=== PATIENT | male | born 1950 | race Two or more races ===

== ENCOUNTER 2018-03-06 09:20 | Day surgery (SDC) | payer OTHER ==
[~2018-03-06 09:20] MED LIST: ACID CONTROLLER20 MG PO; AMILODIPINE PO; ESTER-C 500 MG1 EACH PO; GILPHEX TR TAB1 EACH PO; LEVOTHYROXINE25 MCG PO; TAMS0.4C PO
== END 2018-03-06 19:15 | disposition home or self-care (01) ==
LOC: CIR.AMB 09:20
DX: M75.122 Complete rotator cuff tear or rupture of left shoulder, not specified as traumatic (principal); M13.812 Other specified arthritis, left shoulder

== ENCOUNTER 2019-02-16 12:01 | Outpatient (CLI) | payer OTHER | END 2019-02-16 12:05 | disposition home or self-care (01) | LOC: LAB 12:01 | DX: R31.0 Gross hematuria (principal) ==

== ENCOUNTER 2019-04-01 09:20 | Outpatient (CLI) | payer OTHER | END 2019-04-01 09:26 | disposition home or self-care (01) | LOC: LAB 09:20 | DX: N20.0 Calculus of kidney (principal) ==

== ENCOUNTER → 2019-04-01 | Outpatient (CLI) | payer OTHER | END | disposition home or self-care (01) | LOC: TOM 08:35 | DX: R31.0 Gross hematuria (principal); F52.21 Male erectile disorder | CPT/HCPCS: 74178; Q9965 ==

== ENCOUNTER 2020-01-20 09:44 | Emergency (ER) | payer OTHER ==
[~2020-01-20] VITALS: Ht 170.2 cm; Wt 77.6 kg
[2020-01-20] MEDS ORDERED: CIPRO500 MG PO (14:24)
[2020-01-20] MEDS ORDERED: TAMS0.4C PO (14:24)
[2020-01-26] MEDS ORDERED: AMLODIPINE PO (11:21)
[2020-01-26] MEDS ORDERED: ATORVASTATIN CA10 MG PO (11:22)
== END 2020-01-20 14:47 | disposition home or self-care (01) ==
LOC: ER 09:44
DX: N20.1 Calculus of ureter (principal); Z20.828 Contact with and (suspected) exposure to other viral communicable diseases

== ENCOUNTER → 2020-01-26 08:57 | Outpatient (CLI) | payer OTHER ==
[~2020-01-26 08:57] MED LIST changes: +AMLODIPINE PO; +ATORVASTATIN CA10 MG PO; +CIPRO500 MG PO
== END | disposition home or self-care (01) ==
LOC: LAB 08:57
PROVIDERS: ATTEND Urology
DX: N40.1 Benign prostatic hyperplasia with lower urinary tract symptoms (principal); I11.9 Hypertensive heart disease without heart failure

== ENCOUNTER 2021-02-26 23:53 | Inpatient (IN) | payer OTHER ==
[~2021-02-26] VITALS: Ht 170.2 cm; Wt 76.2 kg
[~2021-02-26 23:53] MED LIST changes: +AMLODIPINE-ATO1 EACH PO; +FINASTERIDE5 MG PO
[2021-02-27] MEDS ORDERED: TRAMADOL HCL E300 M1 (00:04)
[2021-02-27] MEDS ORDERED: ED-SPAZ0.125 MG (00:04)
--- NOTE | 2021-02-27 00:05 | NUR ---
SE RECIBE PTE ALERTA Y ORIENTADO POR GENNARO. PTE REFIERE DOLOR EPIGASTRICO Y CONSTIRPACION DESDE HACE 2 CHAKRABORTY.
--- NOTE | 2021-02-27 01:18 | NUR ---
SE REALIZA CANALIZACION Y LISBETH DE MUESTRAS BAJO MEDIDAS ASEPTICAS Y DE SEGURIDAD. SE ADMINSITRAN MEDICAMENTOS HADLEY LA ORDEN MEDICA SE ORIENTA A PACIENTE ASERCA DEL TRATAMIENTO OFRECIDO EN ANIA DE EMERGENCIAS. PACIENTE MANEJADO POR MISS Y. WATERS. SE MANTIENE PACIENTE EN OBSERVACION PENDIENTE A SONOGRAMA ABDOMINAL Y RESULTADOS DE LABORATORIOS.
[2021-03-04] MEDS ORDERED: ATORVASTATIN CA10 MG PO (09:34)
[2021-03-04] MEDS ORDERED: ED-SPAZ0.125 MG SL (09:34)
[2021-03-04] MEDS ORDERED: AMLODIPINE-ATO1 EACH PO (09:34)
[2021-03-04] MEDS ORDERED: LEVOTHYROXINE25 MCG PO (09:35)
[2021-03-04] MEDS ORDERED: PANTOPRAZOLE SO40 MG PO (09:35)
== END 2021-03-04 13:50 | disposition home or self-care (01) | DRG 440 ==
LOC: ER 23:53 → MEDI 02-27 10:20
PROVIDERS: ADMIT Internal Medicine; ATTEND Internal Medicine
PROC: BW40ZZZ Ultrasonography of Abdomen (ICD-10-PCS; 2021-02-27)
PROC: BF37ZZZ Magnetic Resonance Imaging (MRI) of Pancreas (ICD-10-PCS; 2021-02-27)
PROC: 0DB68ZX Excision of Stomach, Via Natural or Artificial Opening Endoscopic, Diagnostic (ICD-10-PCS; principal; 2021-03-03)
PROC: 0DB58ZX Excision of Esophagus, Via Natural or Artificial Opening Endoscopic, Diagnostic (ICD-10-PCS; 2021-03-03)
DX: K85.10 Biliary acute pancreatitis without necrosis or infection (principal); K82.4 Cholesterolosis of gallbladder; K21.00 Gastro-esophageal reflux disease with esophagitis, without bleeding; K31.7 Polyp of stomach and duodenum; I10 Essential (primary) hypertension; E78.5 Hyperlipidemia, unspecified; E03.9 Hypothyroidism, unspecified; Z86.010 Personal history of colon polyps

== ENCOUNTER 2022-02-01 06:34 | Day surgery (SDC) | payer OTHER ==
[~2022-02-01 06:34] MED LIST changes: +ED-SPAZ0.125 MG; +ED-SPAZ0.125 MG SL; +PANTOPRAZOLE SO40 MG PO; +TRAMADOL HCL E300 M1
== END 2022-02-01 18:05 | disposition home or self-care (01) ==
LOC: CIR.AMB 06:34
PROVIDERS: ATTEND Orthopaedic Surgery
DX: M75.121 Complete rotator cuff tear or rupture of right shoulder, not specified as traumatic (principal); M75.21 Bicipital tendinitis, right shoulder; M24.111 Other articular cartilage disorders, right shoulder; Z20.822 Contact with and (suspected) exposure to COVID-19; I10 Essential (primary) hypertension; E03.9 Hypothyroidism, unspecified

== ENCOUNTER 2023-06-29 13:25 | Inpatient (IN) | payer OTHER ==
[~2023-06-29] VITALS: Ht 170.2 cm; Wt 78.5 kg
[2023-06-29] MEDS ORDERED: LEVOTHYROXINE25 MC1 PO (13:54)
[2023-06-29] MEDS ORDERED: NORVASC2.5 M1 PO (13:56)
--- NOTE | 2023-06-29 13:57 | NUR ---
PACIENTE ALERTA Y ORIENTADO X3 REFIERE TENER DIARREAS DESDE EL XIAO PASADO. PACIENTE HACE ENTREGA DE BYRON NOTA MEDICA INDICANDO QUE EL PACIENTE TIENE TROMBOCITOPENIA CON PLAQUETAS EN [address]. SE ABNER S/V Y SE UBICA EN ROYCE.
[2023-06-29] MEDS ORDERED: METHYLPREDNISOLONE SOD SUCC 40 MG VIAL IV ONE (15:30)
[2023-06-29] MEDS ORDERED: 0.9 % SODIUM CHLORIDE 500 ML IV SCH (15:30)
--- NOTE | 2023-06-29 15:42 | NUR ---
PTE MASCULINO EVALUADO POR . SE ORIENTA SOBRE ORDENES DE [place] REFIERE COMPRENDER. SE COLECTAN MUESTRAS DE LABORATORIOS Y SE CANALZIA VENA BAJO MEDIDAS ASEPTICAS. SE ADMINISTRAN MEDICAMENTOS, BAJO MEDIDAS ASEPTICAS.
[2023-06-29 16:24] LABS: HEMATOCRIT 45.9 % (39.0-48.0); HEMOGLOBIN 15.9 g/dL (13-16.00); MEAN CELL VOLUME 91.9 fL (80.0-100.00); MEAN CORPUSCULAR HEMOGLOBIN 31.9 pg (27.00-32.0); MEAN CORPUSCULAR HGB CONC 34.7 g/dl (32.0-36.0); RED BLOOD COUNT 4.99 M/uL (4.00-6.00); RED CELL DISTRIBUTION WIDTH 13.1 % (11.5-14.5)
[2023-06-29 16:45] LABS: ALBUMIN 3.7 gm/dL (3.4-5.0); BILIRUBIN TOTAL 0.68 mg/dL (0.3-1.2); BILIRUBIN,CONJUGATED 0.15 mg/dL (0.0-0.2); BILIRUBIN,UNCONJUGATED 0.53 mg/dL (0.0-0.6); CALCIUM 8.8 mg/dL (8.5-10.1); CREATININE SERUM 1.01 mg/dL (0.70-1.30); GFR 72.41; GLOBULINA 3.6 G/DL (2.4-3.5); POTASSIUM 4.24 mEq/L (3.5-5.1); TOTAL PROTEIN 7.3 gm/dL (6.4-8.2)
[2023-06-29 16:58] LABS: INR 1.02; PARTIAL THROMBOPLASTIN TIME 33.2 SECONDS (22.0-34.0); PROTHROMBIN TIME 10.7 SECONDS (9.0-11.5)
[2023-06-29 17:34] LABS: PLATELET COUNT 16 K/uL (150-450)
[2023-06-29 18:23] LABS: URINE APPEARANCE Clear; URINE BILIRRUBIN Negative (NEGATIVE); URINE BLOOD Negative; URINE COLOR Yellow; URINE GLUCOSE Negative (NEGATIVE); URINE LEUKOCYTE Negative; URINE NITRATE Negative; URINE PROTEIN 30 (NEGATIVE); URINE UROBILINOGEN 0.2 E.U./dl
[2023-06-29 18:28] LABS: URINE BACTERIA 6.2 uL (0.0-1933); URINE EPITHELIAL CELLS 3.8 uL (0.0-38.8); URINE RBC 7.6 uL (0.0-20.8); URINE WBC 4.6 uL (0.0-23.2)
[2023-06-29] MEDS ORDERED: DEXTROSE 50 % IN WATER 0.5 G/ML DISP.SYRIN IV PRN (20:30)
[2023-06-29] MEDS ORDERED: METHYLPREDNISOLONE SOD SUCC 40 MG VIAL IV PRN (20:30)
[2023-06-29] MEDS ORDERED: 0.9 % SODIUM CHLORIDE 1,000 ML IV SCH (20:30)
[2023-06-29] MEDS ORDERED: INSULIN LISPRO 1,000 UNIT/10 ML UNITS SUBCUTANEO PRN (20:30)
[2023-06-29] MEDS ORDERED: DIPHENHYDRAMINE HCL 50 MG/ML VIAL 1ML IV PRN (20:30)
[2023-06-29] MEDS ORDERED: ONDANSETRON HCL 4 MG in 0.9 % SODIUM CHLORIDE 50 ML IV PRN (20:45)
[2023-06-29] MEDS ORDERED: ACETAMINOPHEN 500 MG GEL..CAP PO PRN (20:45)
[2023-06-29] MEDS ORDERED: hydrALAZINE HCL 20 MG VIAL IV PRN (20:45)
[2023-06-29] MEDS ORDERED: MORPHINE SULFATE 2 MG/ML CARTRIDGE IV PRN (20:45)
[2023-06-29] MEDS ORDERED: FAMOTIDINE/PF 20 MG in 0.9 % SODIUM CHLORIDE 8 ML IV PUSH SCH (21:00)
[2023-06-29 23:40] LABS: CKMB 2.9 NG/ML (0.5-3.6)
[2023-06-30 00:11] LABS: RH POSITIVE
[2023-06-30] MEDS ORDERED: METHYLPREDNISOLONE SOD SUCC 40 MG VIAL IV SCH (01:00)
[2023-06-30] MEDS ORDERED: LEVOTHYROXINE SODIUM 25 MCG TABLET PO SCH (06:00)
[2023-06-30 07:41] LABS: ALBUMIN 3.5 gm/dL (3.4-5.0); BILIRUBIN TOTAL 0.71 mg/dL (0.3-1.2); BILIRUBIN,CONJUGATED 0.17 mg/dL (0.0-0.2); BILIRUBIN,UNCONJUGATED 0.54 mg/dL (0.0-0.6); CALCIUM 8.6 mg/dL (8.5-10.1); CHOL HDL RATIO 4.6 (0-5.0); CREATININE SERUM 0.74 mg/dL (0.70-1.30); GFR 103.68; GLOBULINA 3.1 G/DL (2.4-3.5); POTASSIUM 4.3 mEq/L (3.5-5.1); TOTAL PROTEIN 6.6 gm/dL (6.4-8.2)
[2023-06-30 08:00] LABS: C-REACTIVE PROTEIN 0.86 MG/DL (0.00-0.29)
[2023-06-30] MEDS ORDERED: AMLODIPINE BESYLATE 5 MG TABLET PO SCH (09:00)
[2023-06-30 09:06] LABS: HEMATOCRIT 45.9 % (39.0-48.0); MEAN CELL VOLUME 93.2 fL (80.0-100.00); MEAN CORPUSCULAR HEMOGLOBIN 32.5 pg (27.00-32.0); MEAN CORPUSCULAR HGB CONC 34.8 g/dl (32.0-36.0); RED BLOOD COUNT 4.93 M/uL (4.00-6.00)
[2023-06-30 09:07] LABS: PLATELET COUNT 27 K/uL (150-450)
[2023-06-30 09:25] LABS: INR 1.02; PARTIAL THROMBOPLASTIN TIME 32.6 SECONDS (22.0-34.0); PROTHROMBIN TIME 10.7 SECONDS (9.0-11.5)
[2023-06-30 10:03] LABS: PH,URINE 6.5 (5.0-8.0); URINE APPEARANCE Clear; URINE BILIRRUBIN Negative (NEGATIVE); URINE BLOOD Negative; URINE COLOR Yellow; URINE GLUCOSE Negative (NEGATIVE); URINE LEUKOCYTE Negative; URINE NITRATE Negative; URINE PROTEIN Trace (NEGATIVE); URINE UROBILINOGEN 0.2 E.U./dl
[2023-06-30 10:07] LABS: URINE EPITHELIAL CELLS 1.8 uL (0.0-38.8); URINE RBC 8.7 uL (0.0-20.8)
[2023-06-30] MEDS ORDERED: DIPHENHYDRAMINE HCL 50 MG/ML VIAL 1ML IV PRN (10:15)
[2023-06-30] MEDS ORDERED: METHYLPREDNISOLONE SOD SUCC 40 MG VIAL IV PRN (10:15)
[2023-06-30 10:16] LABS: ERYTHROCYTE SEDIMENTATION RATE 19 mm/hr
[2023-06-30 10:21] LABS: URINE WBC 1.2 uL (0.0-23.2)
[2023-06-30 14:21] LABS: CKMB 5.5 NG/ML (0.5-3.6)
[2023-06-30 14:31] LABS: ob POSITIVE (NEGATIVE)
[2023-07-01 07:45] LABS: HEMATOCRIT 47.4 % (39.0-48.0); HEMOGLOBIN 16.3 g/dL (13-16.00); MEAN CELL VOLUME 92.5 fL (80.0-100.00); MEAN CORPUSCULAR HEMOGLOBIN 31.8 pg (27.00-32.0); MEAN CORPUSCULAR HGB CONC 34.3 g/dl (32.0-36.0); RED BLOOD COUNT 5.12 M/uL (4.00-6.00); RED CELL DISTRIBUTION WIDTH 12.8 % (11.5-14.5)
[2023-07-01 07:53] LABS: PLATELET COUNT 63 K/uL (150-450)
[2023-07-02 06:32] LABS: HEMATOCRIT 39.7 % (39.0-48.0); HEMOGLOBIN 13.8 g/dL (13-16.00); MEAN CELL VOLUME 91.6 fL (80.0-100.00); MEAN CORPUSCULAR HEMOGLOBIN 31.8 pg (27.00-32.0); MEAN CORPUSCULAR HGB CONC 34.7 g/dl (32.0-36.0); RED BLOOD COUNT 4.33 M/uL (4.00-6.00); RED CELL DISTRIBUTION WIDTH 13.2 % (11.5-14.5)
[2023-07-02 06:40] LABS: PLATELET COUNT 85 K/uL (150-450)
[2023-07-02] MEDS ORDERED: NORVASC2.5 M1 PO (07:03)
[2023-07-02] MEDS ORDERED: LEVOTHYROXINE25 MC1 PO (07:03)
[2023-07-02] MEDS ORDERED: RAYOS2 MG PO (07:05)
[2023-07-02 08:20] LABS: PLATELET ESTIMATE DECREASED (NORMAL)
== END 2023-07-02 16:14 | disposition home or self-care (01) | DRG 866 ==
LOC: ER 13:25 → MEDJ 21:25
PROVIDERS: Emergency Medicine; General Practice; Internal Medicine; Internal Medicine Hematology & Oncology; ADMIT Emergency Medicine Pediatric Emergency Medicine; ATTEND Emergency Medicine Pediatric Emergency Medicine
PROC: BW40ZZZ Ultrasonography of Abdomen (ICD-10-PCS; principal; 2023-06-29)
DX: A90 Dengue fever [classical dengue] (principal); D69.6 Thrombocytopenia, unspecified; M25.50 Pain in unspecified joint

== ENCOUNTER 2023-12-11 12:15 | Outpatient (CLI) | payer OTHER ==
[~2023-12-11 12:15] MED LIST changes: +LEVOTHYROXINE25 MC1 PO; +NORVASC2.5 M1 PO; +RAYOS2 MG PO
[2023-12-11 13:06] LABS: CREATININE SERUM 0.96 mg/dL (0.70-1.30)
== END 2023-12-11 12:16 | disposition home or self-care (01) ==
LOC: LAB 12:15
PROVIDERS: ATTEND Radiology Diagnostic Radiology
DX: R10.2 Pelvic and perineal pain (principal)

== ENCOUNTER 2023-12-12 07:09 | Outpatient (CLI) | payer OTHER | END 2023-12-12 07:18 | disposition home or self-care (01) | LOC: TOM 07:09 | PROVIDERS: ATTEND General Practice | DX: R10.2 Pelvic and perineal pain (principal); R10.814 Left lower quadrant abdominal tenderness | CPT/HCPCS: 74178; Q9965 ==

== ENCOUNTER 2024-12-15 12:22 | Outpatient (CLI) | payer OTHER ==
[2024-12-15 13:23] LABS: CREATININE SERUM 1.0 mg/dL (0.70-1.30)
== END 2024-12-15 12:24 | disposition home or self-care (01) ==
LOC: LAB 12:22
PROVIDERS: ATTEND Radiology Diagnostic Radiology
DX: R10.32 Left lower quadrant pain (principal)